=== PATIENT | female | born 1975 | race Caucasian/White ===

== ENCOUNTER 2017-03-26 16:04 | Emergency (ER) | payer MEDICAID ==
--- NOTE | 2017-03-29 18:28 | ER ---
ADMIT: 03/26/2017 RM/LOC: ER [facility] MR#: [id number] [address] SELENE HAWKINS [address] [place] [address] Emergency Room Report SEX: F AGE: 42 : 1975 DATE: 03/26/2017 ADDENDUM: Please see my T-sheet for complete review of systems, past medical history, and physical exam. CHIEF COMPLAINT: Right eye swelling. HISTORY OF PRESENT ILLNESS: This is a pleasant 42-year-old female, who presents with some acute onset right eye swelling. She states she awoke from a nap earlier today and noticed that she had some swelling about her right eye. She admits to some eaeupmnn-pk-nyrxom pain about the right eye. Denies any pain with extraocular muscle movements. Denies any redness or matting. She does have some associated eyelid swelling on the right. No foreign body sensation. No decreased blurred or double vision. No sensitivity to light. No headache. She has no known injury. She is currently on prednisone 20 mg daily as well as Benadryl for some exposure to some insects in her house causing her some acute hive-like reaction. She was seen in Urgent Care for this. Denies any sick contacts or previous trauma. She has an allergy to Bactrim. However, denies any changes in makeup or other topical applications to her face. COURSE IN EMERGENCY ROOM: The patient was seen and examined. She does have some periorbital edema about the right eye. I did have Dr. Bruce also examine the patient, concern for preseptal cellulitis. He thought this was likely secondary reaction to an insect bite of some sort similar to what she had on her arm. Extraocular muscle testing was intact. She has no pain with this. Pupils are equal and reactive to light. The eye was not injected. No evidence of hyphema, stye. IMPRESSION: Periorbital edema likely secondary to insect bite. DISPOSITION: The patient was discharged to increase her prednisone to 20 mg p.o. b.i.d. for 4 days. She was provided a script for Keflex 500 mg p.o. b.i.d. for 5 days. If she does not improve over the next 40 hours, she can use Benadryl over the counter or up to three times daily as needed. Certainly apply the cool compress to the eye as needed as well. Follow up with Dr. Estevez if she is not improving. Questions were sought and answered to the best of my ability and to patient's satisfaction. She was discharged from the department in stable condition. JL Vogt / Sreekanth Bruce MD / rich JOB #: [id number] CC: Sreekanth Bruce MD, Attending Physician
== END 2017-03-26 17:49 | disposition home or self-care (01) ==
LOC: ER 16:04
DX: H05.221 Edema of right orbit (principal); J44.9 Chronic obstructive pulmonary disease, unspecified; F17.210 Nicotine dependence, cigarettes, uncomplicated